=== PATIENT | female | born 1975 | race Caucasian/White ===

== ENCOUNTER → 2016-08-06 | Outpatient (CLI) | payer OTHER ==
[~2016-08-06] MED LIST: ACET-1256 PO; GADAVIST IV PRN; IBUP-1050 PO; OXYC-57 PO; TRAM-10 PO
--- NOTE | 2016-08-06 16:06 | DIAGNOSTIC IMAGING REPORT ---
MRI OF THE PELVIS COMBO CLINICAL HISTORY: Chronic pelvic pain. COMPARISON STUDY: Pelvic CT dated 04/11/2016. Pelvic ultrasound dated 04/11/2016. TECHNIQUE: MRI of the pelvis is performed utilizing various T1 and T2-weighted sequences in the axial, sagittal, and coronal planes. Contrast-enhanced sequences are acquired following the IV administration of 8 cc of Gadavist. Examination is severely compromised by open MRI technique and large body habitus. This degrades the diagnostic utility of the examination. FINDINGS: The uterus is heterogeneous in signal intensity, and measures up to 9 cm in length. The endometrium measures up to 10 mm in thickness. The junctional zone is largely normal in appearance and well demarcated measuring up to 10 mm. There is questionable focal thickening of the junctional zone in the anterior uterine body. This becomes somewhat indistinct and measures up to 1.5 cm. Focal adenomyosis is not excluded. No enhancing lesion is seen on the postcontrast images. The ovaries are grossly unremarkable. A small follicles are noted on the left. The bladder is normal as visualized. Imaged bowel is normal in appearance. The iliac vessels are patent. There is no pelvic sidewall or inguinal lymphadenopathy. The bony pelvis appears intact. No destructive bony process is seen. Disc herniation is noted at L5-S1. The musculature of the pelvis and upper thighs is normal as visualized. IMPRESSION: 1. No definite pelvic abnormality is identified noting a significantly degraded examination as above. 2. Question focal adenomyosis of the anterior uterine body. See above discussion. 3. There is a disc herniation at L5-S1. Dictated: 08/06/2016 3:45 PM Transcribed: 08/06/2016 4:05 PM [facility] Electronically signed by: Miguelito Salgado M.D. 08/07/2016 9:51 AM Dictated Date/Time: 08/06/2016 3:45 PM
== END | disposition home or self-care (01) ==
LOC: C.MRI 13:23
PROVIDERS: ATTEND Family Medicine
DX: R10.2 Pelvic and perineal pain (principal)

== ENCOUNTER 2017-04-15 18:50 | Emergency (ER) | payer OTHER ==
[~2017-04-15] VITALS: Ht 162.6 cm; Wt 86.0 kg
[~2017-04-15 18:50] MED LIST changes: -GADAVIST IV PRN
[2017-04-15 18:54] VITALS: TEMP 36.8; Ht 162.6 cm; Wt 86.0 kg
[2017-04-15 19:32] VITALS: O2SAT 98
[2017-04-15 19:39] LABS: BASO % 0.4 %; BASO ABS # 0.03 K/uL (0-0.2); COMPLETE YES; EOS % 1.9 %; HEMATOCRIT 36.5 % (37-47); IG% 0.3 %; LYMPH % 24.9 %; LYMPH ABS # 1.84 K/uL (1.2-3.4); MEAN CELL VOLUME 86.7 fL (80-100); MEAN CORPUSCULAR HGB CONC 33.4 g/dl (32-36); MEAN PLATELET VOLUME 9.2 fL (7.4-10.4); MONO % 6.1 %; NEUT % 66.4 %; PLATELET COUNT 377 K/uL (130-400); RED BLOOD COUNT 4.21 M/uL (4.2-5.4); WHITE BLOOD COUNT 7.39 K/uL (4.8-10.8)
[2017-04-15 19:52] LABS: INR 1.1 (0.9-1.1); PARTIAL THROMBOPLASTIN RATIO 1.1; PROTHROMBIN TIME (PATIENT) 11.7 SECONDS (9.0-12.0)
[2017-04-15 20:00] LABS: ALT/SGPT 19 U/L (12-78); BLOOD UREA NITROGEN 11 mg/dl (7-18); CALCIUM 9.5 mg/dl (8.5-10.1); CARBON DIOXIDE 28 mmol/L (21-32); CHLORIDE 103 mmol/L (98-107); CREATININE 0.68 mg/dl (0.60-1.20); GLUCOSE 147 mg/dl (70-99); POTASSIUM 3.2 mmol/L (3.5-5.1); SODIUM 139 mmol/L (136-145)
[2017-04-15 20:11] LABS: ALKALINE PHOSPHATASE 54 U/L (45-117); AST/SGOT 18 U/L (15-37); CKMB/CK RATIO 1.3 (0-3.0)
[2017-04-15 20:27] LABS: URINE APPEARANCE CLEAR (CLEAR); URINE BILIRUBIN NEG (NEG); URINE COLOR YELLOW; URINE NITRITE NEG (NEG); URINE PH 6.5 (4.5-7.5); UROBILINOGEN NEG (NEG)
[2017-04-15 20:29] LABS: MANUAL MICROSCOPIC REQUIRED? NO; REVIEW REQ? NO
--- NOTE | 2017-04-15 20:29 | DIAGNOSTIC IMAGING REPORT ---
SINGLE VIEW CHEST CLINICAL HISTORY: Fever. Sepsis FINDINGS: An AP, portable, upright chest radiograph is compared to study dated 04/11/2016 and correlated with chest CT dated 09/01/2010. The examination is degraded by portable technique and patient rotation. The cardiomediastinal silhouette is unremarkable. The lungs and pleural spaces are clear. No pneumothorax is seen. The bony thorax is grossly intact. IMPRESSION: No active disease in the chest. Electronically signed by: Miguelito Salgado M.D. 04/15/2017 8:28 PM Dictated Date/Time: 04/15/2017 8:28 PM
[2017-04-15] MEDS ORDERED: ALUMINUM/MAGNESIUM SUSP 30 ML UDC PO STA (20:36)
[2017-04-15] MEDS ORDERED: LIDOCAINE HCL 2% VISC SOLN 20 ML UDC PO STA (20:36)
[2017-04-15 20:43] VITALS: BP 115/71; PULSE 79; O2SAT 98
--- NOTE | 2017-04-15 20:47 | EMERGENCY ROOM VISIT NOTE ---
History Report prepared by Javy: Foster Clement Under the Supervision of: Alayna NewmanO. First contact with patient: 19:03 Chief Complaint: CARDIAC ASSESSMENT Stated Complaint: CHEST TINGLE,BURNING,STABBING PAIN History of Present Illness The patient is a 41 year old female who presents to the Emergency Room with complaints of constant tingling and burning chest pain for the past 4-5 days which is intermittently stabbing for a few seconds at a time. The patient currently rates her discomfort as a 4-5/10 in severity. She states that nothing makes the pain better or worse including Tums. She states that she has had pain like this in the past after having a cough. The patient is additionally complaining of neck pain and pain between her shoulder blades, and she has a history of herniated discs. The patient denies any nausea, vomiting, diaphoreses , shortness of breath, cough, leg swelling, fevers, chills, recent travels, and calf pain. The patient states that she is more stressed than usual with her kids. She denies any history of asthma, GERD, hypertension, high cholesterol, and diabetes. She states that her grandfather had a heart attack at age 67. Source of History: patient Onset: 4-5 days ago Position: chest Quality: tingling, burning, stabbing Timing: constant Associated Symptoms: + neck pain, No fevers, No chills, No diaphoresis, No cough, No SOB, No nausea, No vomiting Review of Systems See HPI for pertinent positives & negatives. A total of 10 systems reviewed and were otherwise negative. Past Medical & Surgical Medical Problems: (1) Low back pain Social History Smoking Status: Never Smoker Alcohol Use: occasionally Marital Status: Occupation Status: unemployed Current/Historical Medications No Active Prescriptions or Reported Meds Allergies Coded Allergies: NO KNOWN DRUG ALLERGIES (Verified Allergy, Mild, ., 04/15/17) Physical Exam Vital Signs Date Time Temp Pulse Resp B/P (MAP) Pulse Ox O2 Delivery O2 Flow Rate FiO2 04/15/17 20:43 79 20 115/71 98 Room Air 04/15/17 20:07 73 20 104/72 98 Room Air 04/15/17 19:32 98 Room Air 04/15/17 19:32 98 Room Air 04/15/17 19:12 86 04/15/17 18:54 36.8 82 20 155/81 98 Room Air Physical Exam CONSTITUTIONAL/VITAL SIGNS: Reviewed / noted above. GENERAL: Non-toxic in appearance. INTEGUMENTARY: Warm, dry, and Luck. HEAD: Normocephalic. EYES: without scleral icterus or trauma. ENT/OROPHARYNX: clear and moist. LYMPHADENOPATHY/NECK: Is supple without lymphadenopathy or meningismus. RESPIRATORY: Lungs clear and equal. CARDIOVASCULAR: Regular rate and rhythm. GI/ABDOMEN: Soft and nontender. No organomegaly or pulsatile mass. No rebound or guarding. Normal bowel sounds. EXTREMITIES: Warm and well perfused. BACK: No CVA tenderness. NEUROLOGICAL: Intact without focal deficits. PSYCHIATRIC: normal affect. MUSCULOSKELETAL: Normally developed with good muscle tone. Medical Decision & Procedures ER Provider Diagnostic Interpretation: Radiology results as stated below per my review and radiologist interpretation: SINGLE VIEW CHEST CLINICAL HISTORY: Fever. Sepsis FINDINGS: An AP, portable, upright chest radiograph is compared to study dated 04/11/2016 and correlated with chest CT dated 09/01/2010. The examination is degraded by portable technique and patient rotation. The cardiomediastinal silhouette is unremarkable. The lungs and pleural spaces are clear. No pneumothorax is seen. The bony thorax is grossly intact. IMPRESSION: No active disease in the chest. Electronically signed by: Miguelito Salgado M.D. 04/15/2017 8:28 PM Dictated Date/Time: 04/15/2017 8:28 PM Laboratory Results 04/15/17 19:30 Red Blood Count 4.21, Mean Corpuscular Volume 86.7, Mean Corpuscular Hemoglobin 29.0, Mean Corpuscular Hemoglobin Concent 33.4, Mean Platelet Volume 9.2, Neutrophils (%) (Auto) 66.4, Lymphocytes (%) (Auto) 24.9, Monocytes (%) (Auto) 6.1, Eosinophils (%) (Auto) 1.9, Basophils (%) (Auto) 0.4, Neutrophils # (Auto) 4.91, Lymphocytes # (Auto) 1.84, Monocytes # (Auto) 0.45, Eosinophils # (Auto) 0.14, Basophils # (Auto) 0.03 04/15/17 19:30 Test 04/15/17 19:30 04/15/17 19:54 White Blood Count 7.39 K/uL (4.8-10.8) Red Blood Count 4.21 M/uL (4.2-5.4) Hemoglobin 12.2 g/dL (12.0-16.0) Hematocrit 36.5 % (37-47) Mean Corpuscular Volume 86.7 fL (80-100) Mean Corpuscular Hemoglobin 29.0 pg (25-34) Mean Corpuscular Hemoglobin Concent 33.4 g/dl (32-36) Platelet Count 377 K/uL (130-400) Mean Platelet Volume 9.2 fL (7.4-10.4) Neutrophils (%) (Auto) 66.4 % Lymphocytes (%) (Auto) 24.9 % Monocytes (%) (Auto) 6.1 % Eosinophils (%) (Auto) 1.9 % Basophils (%) (Auto) 0.4 % Neutrophils # (Auto) 4.91 K/uL (1.4-6.5) Lymphocytes # (Auto) 1.84 K/uL (1.2-3.4) Monocytes # (Auto) 0.45 K/uL (0.11-0.59) Eosinophils # (Auto) 0.14 K/uL (0-0.5) Basophils # (Auto) 0.03 K/uL (0-0.2) RDW Standard Deviation 39.6 fL (36.4-46.3) RDW Coefficient of Variation 12.4 % (11.5-14.5) Immature Granulocyte % (Auto) 0.3 % Immature Granulocyte # (Auto) 0.02 K/uL (0.00-0.02) Prothrombin Time 11.7 SECONDS (9.0-12.0) Prothromb Time International Ratio 1.1 (0.9-1.1) Activated Partial Thromboplast Time 27.5 SECONDS (21.0-31.0) Partial Thromboplastin Ratio 1.1 Anion Gap 8.0 mmol/L (3-11) Est Creatinine Clear Calc Drug Dose 115.6 ml/min Estimated GFR () 125.9 Estimated GFR (Non- 108.6 BUN/Creatinine Ratio 16.0 (10-20) Calcium Level 9.5 mg/dl (8.5-10.1) Total Bilirubin 0.2 mg/dl (0.2-1) Direct Bilirubin < 0.1 mg/dl (0-0.2) Aspartate Amino Transf (AST/SGOT) 18 U/L (15-37) Alanine Aminotransferase (ALT/SGPT) 19 U/L (12-78) Alkaline Phosphatase 54 U/L (45-117) Total Creatine Kinase 84 U/L (26-192) Creatine Kinase MB 1.1 ng/ml (0.5-3.6) Creatine Kinase MB Ratio 1.3 (0-3.0) Troponin I < 0.015 ng/ml (0-0.045) Total Protein 7.6 gm/dl (6.4-8.2) Albumin 4.0 gm/dl (3.4-5.0) Lipase 141 U/L (73-393) Thyroid Stimulating Hormone (TSH) 2.130 uIu/ml (0.300-4.500) Urine Color YELLOW Urine Appearance CLEAR (CLEAR) Urine pH 6.5 (4.5-7.5) Urine Specific [place] 1.010 (1.000-1.030) Urine Protein NEG (NEG) Urine Glucose (UA) NEG (NEG) Urine Ketones NEG (NEG) Urine Occult Blood NEG (NEG) Urine Nitrite NEG (NEG) Urine Bilirubin NEG (NEG) Urine Urobilinogen NEG (NEG) Urine Leukocyte Esterase NEG (NEG) Laboratory results as stated above per my review. Medications Administered Medications (Trade) Dose Ordered Sig/Liliam Route Start Time Stop Time Status Last Admin Dose Admin Al Hydroxide/Mg Hydroxide (Maalox Susp) 30 ml NOW STAT PO 04/15/17 20:36 04/15/17 20:37 DC 04/15/17 20:41 30 ML Lidocaine HCl (Viscous Lidocaine 2% Soln) 10 ml NOW STAT PO 04/15/17 20:36 04/15/17 20:37 DC 04/15/17 20:41 10 ML ECG Indication: chest pain Rate (beats per minute): 74 Rhythm: normal sinus Findings: no ectopy, other (No injury ) ED Course 2009: Previous medical records were reviewed. The patient was evaluated in room C8. A complete history and physical examination was performed. 2035: Viscous Lidocaine 2% Soln 10ml PO, Maalox Susp 30ml PO Medical Decision the differential was considered includes acute myocardial infarction, acute coronary syndrome, myocarditis, pericarditis, pericardial effusions /tamponade, esophageal perforation, thoracic aortic dissection, pulmonary embolism, pneumonia, pneumothorax, pancreatitis, shingles, acute cholecystitis, perforated abdominal viscus. This is a 41-year-old female who presents to the ED with a chief complaint of chest discomfort. The patient states that over the past 4-5 days she has been having some constant tingling and burning in her chest. She also states that there is an intermittent pain that crosses her chest that is sharp in nature and asked for a few seconds. It does not appear to, at activity. She denies any feelings of shortness of breath. She has not had a cough or fever. Her vital signs are stable. Her physical exam was normal. Twelve-lead EKG reveals a normal sinus rhythm without ectopy or acute injury. CBC is normal, complete metabolic panel was normal, troponin was negative. Chest x-ray did not show acute disease. The patient was told results the test. She is felt to be stable for discharge and outpatient follow-up. Patient was given a GI cocktail which helped some. Medication Reconcilliation Current Medication List: was personally reviewed by me Blood Pressure Screening Patient's blood pressure: Normal blood pressure Impression Primary Impression: Precordial chest pain Scribe Attestation The scribe's documentation has been prepared under my direction and personally reviewed by me in its entirety. I confirm that the note above accurately reflects all work, treatment, procedures, and medical decision making performed by me. Departure Information Dispostion Home / Self-Care Prescriptions No Active Prescriptions or Reported Meds Referrals Leola Garcia DO (PCP) Forms IMPORTANT VISIT INFORMATION Patient Instructions My [facility] Additional Instructions Follow-up with your doctor for further care and evaluation in 1-5 days. Return to the emergency department for worsening or new symptoms or any concerns. You have been examined and treated today on an emergency basis only. This is not a substitute for, or an effort to provide, complete comprehensive medical care. It is impossible to recognize and treat all injuries or illnesses in a single emergency department visit. It is therefore important that you follow up closely with your doctor. Call as soon as possible for an appointment. Try [id number] acid reducing agents like Pepcid or Zantac. Tylenol as needed for pain.
== END 2017-04-15 21:07 | disposition home or self-care (01) ==
LOC: C.EDB 18:52 → C.EDC 21:07
DX: R07.2 Precordial pain (principal)